=== PATIENT | male | born 1950 | race Caucasian/White ===

== ENCOUNTER 2017-10-07 22:47 | Inpatient (IN) | payer MEDICARE ==
[2017-10-07] MEDS ORDERED: Ondansetron HCl/PF 4 MG/2 ML Vial IVP PRN (23:57)
[2017-10-07] MEDS ORDERED: Ondansetron ODT 4 MG TAB PO PRN (23:57)
[2017-10-07] MEDS ORDERED: Milk Of Magnesia 30 ML UDCUP PO PRN (23:57)
[2017-10-07] MEDS ORDERED: Nitroglycerin 0.4 MG TAB (25 Tab Bottle) SL PRN (23:58)
[2017-10-08] MEDS ORDERED: Nitroglycerin 2% Ointment 1 INCH/1 GM Packet ONE
--- NOTE | 2017-10-08 00:55 | HP ---
PRIMARY CARE PHYSICIAN: Gm Aguilar MD PRESENTING COMPLAINT: Chest pain. HISTORY OF PRESENT ILLNESS: Mr. Mike Grove is a 66-year-old male with a past medical history of hypertension and hyperlipidemia, who reports chest pain started on Friday. He had intermittent episodes of substernal 5-7/10 chest pain lasting 4-5 minutes, aggravated by activity occasionally and sometimes occurring at rest, and are relieved by resting. The pain did not radiate. He denies any extremity weakness or jaw numbness. He has no diaphoresis, but has some shortness of breath associated with the chest pain. There is no nausea, vomiting, diarrhea, fever, or chills. He has no palpitations, PND, orthopnea, or lower extremity edema. He states he had a stress test done about 20 years ago, which was negative. PAST MEDICAL HISTORY: Hypertension, hyperlipidemia. PAST SURGICAL HISTORY: Reviewed and noncontributory. SOCIAL HISTORY: Denies smoking cigarette, drinking alcohol, or using illicit drugs. FAMILY HISTORY: No family history of CAD, sudden deaths, or heart failure. ALLERGIES: None. HOME MEDICATIONS: Ibuprofen 200 mg every 4 hours as needed for pain, lisinopril/ hydrochlorothiazide 10 mg/12.5 mg tablet daily, prednisone 10 mg as directed for "poison dat." REVIEW OF SYSTEMS: General: Negative. HEENT: Negative. Respiratory: Positive for shortness of breath. Cardiovascular: Positive for chest pain. For details, see HPI. Abdomen: Negative. Musculoskeletal: Negative. Skin: Negative. Allergy/immunology: Negative. Hematology: Negative. Neurologic: Negative. Psychiatric: Negative. LABORATORY DATA: Significant labs include troponin, which was 1.32 on arrival with CK-MB of 12.9. EKG showed no ST-segment elevations. Chest x-ray showed no acute findings. ASSESSMENT AND PLAN: 1. Gaa-GY-wbrolse elevation myocardial infarction: The patient with a history of hypertension and hyperlipidemia presenting with chest pain and elevated cardiac enzymes. Cardiology has been consulted and the patient will be started on subcutaneous Lovenox 1 mg/kg q.12 hours. He will also be monitored on telemetry. For his chest pain, he will be placed on sublingual nitroglycerin and IV morphine p.r.n. Also nitro paste will be placed to control blood pressure. He will be continued on aspirin. Lipid profile will be obtained and he will be placed on atorvastatin 40 mg at bedtime. 2. Hyperlipidemia. He will be placed on atorvastatin. We will obtain lipid profile. 3. Hypertension. Blood pressure is relatively well controlled. The patient is not on any beta donnell at home. We will monitor blood pressure and before discharge, he will need to be started on beta donnell. 4. Cardiology consulted for possible left heart catheterization. CODE STATUS: FULL CODE. MTDD
[2017-10-08 01:01] LABS: Troponin I 1.792 ng/mL (< 0.028)
[2017-10-08 03:12] VITALS: BMI 28.8
[2017-10-08 03:32] LABS: #Basophils 0.1 thou/uL (0.0-0.2); #Eosinphils 0.3 thou/uL (0.0-0.7); #Lymphocytes 3.2 thou/uL (1.20-3.40); #Monocytes 0.7 thou/uL (0.11-0.59); #Neutrophils 4.1 thou/uL (1.40-6.50); %Basophils 0.9 % (0.0-1.0); %Eosinophils 3.2 % (0.0-10.0); %Lymphocytes 38.4 % (21.0-51.0); %Monocytes 8.7 % (0.0-10.0); %Neutrophils 48.9 % (42.0-75.0); Hemoglobin 14.2 g/dL (14.0-18.0); Mean Corpuscular HGB CONC 34.4 g/dL (32.0-36.0); Mean Corpuscular Volume 87.2 fl (80.0-94.0); Mean Platelet Volume 6.4 fL (7.4-10.4); Platelet Count 202 thou/uL (130-400); Red Blood Cell (RBC) Count 4.72 mill/uL (4.70-6.10); White Blood Cell (WBC) Count 8.4 thou/uL (4.8-10.8)
[2017-10-08 03:59] LABS: Troponin I 2.126 ng/mL (< 0.028)
[2017-10-08 04:03] LABS: AST (SGOT) 26 U/L (5-34); Albumin 3.8 g/dL (3.4-4.8); Anion Gap 12 mmol/L (10-20); Bilirubin, Total 0.3 mg/dL (0.2-1.2); Calc. Creatinine Clearance 82 mL/min (70-130); Calcium 9.2 mg/dL (7.8-10.44); Carbon Dioxide 26 mmol/L (23-31); Cardiac Risk 7.1 (Less than 4.5); Chloride 104 mmol/L (98-107); Cholesterol 205 mg/dl (< 200 Desired); Estimated GFR-MDRD 68; HDL Cholesterol 29 mg/dL (>60 Neg Risk); LDL Cholesterol, Calculated 130 mg/dL; Potassium 4.1 mmol/L (3.5-5.1); Protein, Total 6.8 g/dL (5.8-8.1); Sodium 138 mmol/L (136-145); Triglycerides 232 mg/dL (Less than 150)
[2017-10-08 04:07] LABS: Glucose 103 mg/dL (80-115)
[2017-10-08 04:10] LABS: Alkaline Phosphatase 91 U/L (40-150)
[2017-10-08 04:12] LABS: BUN (Urea Nitrogen) 11 mg/dL (8.4-25.7)
[2017-10-08 04:13] LABS: ALT (SGPT) 19 U/L (8-55)
[2017-10-08] MEDS ORDERED: Loratadine 10 MG TAB PO PRN (07:00)
[2017-10-08] MEDS ORDERED: hydrALAZINE 20 MG/ML VIAL SLOW IVP PRN (07:00)
[2017-10-08] MEDS ORDERED: Artificial Tears 18 DROP/0.9 ML EA EYE PRN (07:00)
[2017-10-08] MEDS ORDERED: Chloraseptic Spray 180 ml Bottle PO PRN (07:00)
[2017-10-08] MEDS ORDERED: Loperamide HCl 2 MG CAP PO PRN (07:00)
[2017-10-08] MEDS ORDERED: Eucerin (Mineral Oil/Petrolatum,White) 30 gm Jar TOP PRN (07:00)
[2017-10-08] MEDS ORDERED: Temazepam 15 MG CAP PO PRN (07:00)
[2017-10-08] MEDS ORDERED: Mag-Al 1200 mg/1200 mg/30 ML UDCUP PO PRN (07:00)
[2017-10-08] MEDS ORDERED: Sodium Chloride 0.65% Nasal 44 ML BOT EA NARE PRN (07:00)
[2017-10-08] MEDS ORDERED: Diabetic Tussin 200 MG/10 ML UDCUP PO PRN (07:00)
[2017-10-08 07:21] LABS: Critical Call Chem Troponin I RESULT DECREASING; Troponin I 1.966 ng/mL (< 0.028)
[2017-10-08] MEDS: Famotidine 20 MG TAB PO SCH ×2 (08:40→22:41)
[2017-10-08] MEDS: Docusate 100 MG CAP PO SCH ×2 (08:40→22:41)
[2017-10-08] MEDS: Aspirin 325 MG TAB PO SCH (08:40)
[2017-10-08] MEDS ORDERED: Enoxaparin Sodium 100 MG/ML SYRINGE SC SCH (09:00)
--- NOTE | 2017-10-08 09:06 | PDOC.PN ---
- Subjective Encounter Start Date: 10/08/17 Encounter Start Time: 07:10 -: old records requested/rev pt has mild chest discomfort, no dyspnea, no palpitation - Objective MAR Reviewed: Yes Vital Signs & Weight: Vital Signs (12 hours) Temp Pulse Resp BP Pulse Ox 10/08/17 08:00 97.9 F 60 16 111/70 94 L 10/08/17 07:43 97 10/08/17 03:54 97.5 F L 51 L 14 109/72 95 10/08/17 01:29 97.5 F L 51 L 14 119/73 97 Weight Weight 190 lb Result Diagrams: 10/08/17 03:25 10/08/17 03:25 EKG Reviewed by me: Yes (nsr) Phys Exam - Physical Examination Constitutional: NAD HEENT: PERRLA, moist MMs, sclera anicteric Neck: no JVD, supple Respiratory: no wheezing, no rales, no rhonchi Cardiovascular: RRR, no significant murmur, no rub Gastrointestinal: soft, non-tender, no distention, positive bowel sounds Musculoskeletal: no edema, pulses present Neurological: non-focal, normal sensation, moves all 4 limbs Lymphatic: no nodes Psychiatric: normal affect, A&O x 3 Skin: no rash, normal turgor Dx/Plan (1) NSTEMI (non-ST elevated myocardial infarction) Code(s): I21.4 - NON-ST ELEVATION (NSTEMI) MYOCARDIAL INFARCTION Status: Acute (2) Sinus bradycardia Code(s): R00.1 - BRADYCARDIA, UNSPECIFIED Status: Acute (3) Dyslipidemia Code(s): E78.5 - HYPERLIPIDEMIA, UNSPECIFIED Status: Chronic (4) Hypertension Code(s): I10 - ESSENTIAL (PRIMARY) HYPERTENSION Status: Chronic - Plan cont current plan of care, plan discussed w/ family * continue aspirin, lipitor, lovenox * pt is not on beta donnell due to bradycardia * pt is not on ACEI due to relative low BP * echo * cardiology consulted * will need cardiac cath * discussed with . * medication reviewed as below * symptomatic treatment Review of Systems - Review of Systems Constitutional: negative: fever, chills, sweats, weakness, malaise, other Eyes: negative: Pain, Vision Change, Conjunctivae Inflammation, Eyelid Inflammation, Redness, Other ENT: negative: Ear Pain, Ear Discharge, Nose Pain, Nose Discharge, Nose Congestion, Mouth Pain, Mouth Swelling, Throat Pain, Throat Swelling, Other Respiratory: negative: Cough, Dry, Shortness of Breath, Hemoptysis, SOB with Excertion, Pleuritic Pain, Sputum, Wheezing Cardiovascular: negative: chest pain, palpitations, orthopnea, paroxysmal nocturnal dyspnea, edema, light headedness, other Gastrointestinal: negative: Nausea, Vomiting, Abdominal Pain, Diarrhea, Constipation, Melena, Hematochezia, Other Genitourinary: negative: Dysuria, Frequency, Incontinence, Hematuria, Retention , Other Musculoskeletal: negative: Neck Pain, Shoulder Pain, Arm Pain, Back Pain, Hand Pain, Leg Pain, Foot Pain, Other Skin: negative: Rash, Lesions, Lonny, Bruising, Other - Medications/Allergies Allergies/Adverse Reactions: Allergies Allergy/AdvReac Type Severity Reaction Status Date / Time acetaminophen [From Tylenol] Allergy "my son Verified 10/08/17 03:33 of tylenol poisoning--dont want to take any" Medications: Current Medications Al Hydroxide/Mg Hydroxide (Maalox) 15 ml PO Q4H PRN PRN Reason: Heartburn or Indigestion Artificial Tears (Tears Naturale) 0 drop EA EYE PRN PRN PRN Reason: Dry Eyes Aspirin (Aspirin) 325 mg PO DAILY [facility] Last Admin: 10/08/17 08:40 Dose: Not Given Atorvastatin Calcium (Lipitor) 40 mg PO [facility] Docusate Sodium (Colace) 100 mg PO BID [facility] Last Admin: 10/08/17 08:40 Dose: Not Given Enoxaparin Sodium (Lovenox) 90 mg SC 0900,2100 [facility] Last Admin: 10/08/17 08:40 Dose: Not Given Famotidine (Pepcid) 20 mg PO BID [facility] Last Admin: 10/08/17 08:40 Dose: Not Given Guaifenesin (Robitussin Sf) 200 mg PO Q4H PRN PRN Reason: Cough Hydralazine HCl (Apresoline) 10 mg SLOW IVP Q4H PRN PRN Reason: Systolic BP > 180 Influenza Virus Vaccine (Fluzone High-Dose Syr) 0.5 ml IM .ONCE ONE Stop: 10/09/17 09:01 Last Admin: 10/08/17 04:33 Dose: Not Given Lactulose (Lactulose) 20 gm PO DAILYPRN PRN PRN Reason: Constipation Loperamide HCl (Imodium) 2 mg PO PRN PRN PRN Reason: Diarrhea/Loose Stools Loratadine (Claritin) 10 mg PO DAILYPRN PRN PRN Reason: Sinus Symptoms Magnesium Hydroxide (Milk Of Magnesium) 30 ml PO DAILYPRN PRN PRN Reason: Constipation Mineral Oil/White Petrolatum (Eucerin Cream) 0 gm TOP BIDPRN PRN PRN Reason: Dry Skin Morphine Sulfate (Morphine) 2 mg SLOW IVP Q4H PRN PRN Reason: Pain Nitroglycerin (Nitrostat) 0.4 mg SL Q5MIN PRN PRN Reason: Chest Pain Ondansetron HCl (Zofran Odt) 4 mg PO Q6H PRN PRN Reason: Nausea/Vomiting Ondansetron HCl (Zofran) 4 mg IVP Q6H PRN PRN Reason: Nausea/Vomiting Phenol (Chloraseptic [place] 180 Ml Bot) 0 ml PO PRN PRN PRN Reason: Sore Throat Sodium Chloride ([place] Nasal [place] 0.65%) 0 ml EA NARE QIDPRN PRN PRN Reason: Nasal Congestion Sodium Chloride (Flush - Normal Saline) 10 ml IVF Q12HR LIZZETTE Sodium Chloride (Flush - Normal Saline) 10 ml IVF PRN PRN PRN Reason: Saline Flush Temazepam (Restoril) 15 mg PO HSPRN PRN PRN Reason: Insomnia
[2017-10-08] MEDS ORDERED: Morphine 5 MG/ML SYRINGE SLOW IVP PRN (16:30)
[2017-10-08] MEDS ORDERED: Communication Order-Pharmacy FS SCH (16:30)
[2017-10-08] MEDS: Sodium Chloride 0.9% 1,000 ML IV SCH (17:14)
[2017-10-08] MEDS: Atorvastatin Calcium 40 MG TAB PO SCH (22:41)
--- NOTE | 2017-10-09 01:50 | CON ---
DATE OF CONSULTATION: 10/08/2017 HISTORY OF PRESENT ILLNESS: Perfecto Mckeon is a 66-year-old white male who denies any previous episodes of chest discomfort until Friday10/05/2017. He first noticed this while he was driving, had approximately 10 minutes of chest burning that would radiate into both arms. He had mild shortness of breath associated with this, but no nausea, vomiting or diaphoresis. The first episode he states was the worst and seemed to last the longest time - 10 minutes. After that, he had 2-3 minutes of the same type of discomfort associated with exertion and relieved with rest. He went to work on 10/06/2017 and had an episode with lifting at work. Ultimately, he decided to come to the emergency room yesterday for further evaluation. He was found to have positive cardiac enzymes and was admitted. PAST MEDICAL HISTORY: Remarkable for hypertension. He was recently told that he has hypercholesterolemia, but has never been on any medications. He denies any history of diabetes. OPERATIONS: Left knee surgery, ORIF right ankle, surgical repair of trauma to the right ring finger. MEDICATIONS: Lisinopril/hydrochlorothiazide 10/12.5 daily (he is somewhat uncertain of the dose) and ibuprofen. He also has been taking prednisone 10 mg per Poison dat. ALLERGIES: None (however, the patient states that he had a son of liver failure from Tylenol and wishes to not take Tylenol). SOCIAL HISTORY: He smoked 1 pack per day, but stopped 35 years ago. He also stopped drinking at that time. 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 FAMILY HISTORY: Negative for coronary artery disease, myocardial infarction, CABG or sudden . REVIEW OF SYSTEMS: Twelve-point review of systems unremarkable. PHYSICAL EXAMINATION: VITAL SIGNS: Blood pressure 114/67, pulse of 55. HEENT: PERRL with bilateral ear creases. NECK: Supple. CHEST: Clear. CARDIAC: S1, S2 normal, without any S3, S4 or murmurs. Carotid upstrokes normal, without bruits. ABDOMEN: Normal bowel sounds, without tenderness, organomegaly. EXTREMITIES: Revealed no clubbing, cyanosis or edema. NEUROLOGIC: Grossly intact. SKIN: Warm and dry. LABORATORY DATA: EKG reveals sinus bradycardia with probable inferior infarction with Q-wave in II, III and F with inverted T waves. Echocardiogram revealed mild left ventricular dysfunction with overall ejection fraction of 45% -50%, evidence for diastolic dysfunction, mild mitral regurgitation, aortic valvular sclerosis, mild to moderate aortic insufficiency, mild tricuspid regurgitation and mild pulmonic regurgitation. Hemoglobin 14.2, hematocrit 41.1 , white count 8400, platelets 202,000. Sodium 138, potassium 4.1, chloride 26, BUN 11, creatinine 1.08, glucose 134 on admission, however, was 103 this morning fasting. CK-MB 12.9. The peak troponin I is 2.126. Cholesterol 205, triglycerides 232, HDL 29, LDL 130. Lipase is normal at 52. IMPRESSION: 1. Eup-EB-xbxrulh elevation myocardial infarction, probably inferiorly. 2. Hypertension. 3. Hypercholesterolemia, untreated. 4. Distant smoker. PLAN: The situation was discussed with the patient and his . It was recommended he undergo cardiac catheterization. Risks of this were discussed including , myocardial infarction, dye reaction, vascular injury, CVA, transfusion, limb loss, renal loss, vascular injury, etc. Also, risks of stent placement were discussed including , myocardial infarction, emergent CABG, restenosis, stent thrombosis, vessel perforation, etc. We discussed bare metal stent versus drug-eluting stent. He does not have any upcoming surgeries, and has never had GI bleeding in the past and has never had a stroke. Therefore, it was recommended that a drug-eluting stent be placed if needed. MACARIO
[2017-10-09] MEDS: Sodium Chloride 0.9% 1,000 ML IV SCH (05:55)
[2017-10-09] MEDS ORDERED: Heparin 10,000 UNITS/1 ML VIAL ONE (06:29)
[2017-10-09] MEDS ORDERED: Lidocaine 1% (PF) 30 ML VIAL ONE (06:32)
[2017-10-09] MEDS ORDERED: Midazolam HCl 2 mg/2 ml Vial ONE (07:09)
[2017-10-09] MEDS ORDERED: Fentanyl 250 MCG/5 ML VIAL ONE (07:09)
[2017-10-09] MEDS ORDERED: Heparin 25,000 units/D5W 500 ML ONE (07:32)
[2017-10-09] MEDS ORDERED: traMADol HCl 50 MG TAB PO PRN (07:58)
[2017-10-09] MEDS ORDERED: Nitroglycerin 0.4 MG TAB (25 Tab Bottle) SL PRN (07:58)
[2017-10-09] MEDS ORDERED: Sodium Chloride 0.9% 1,000 ML IV SCH (08:00)
[2017-10-09] MEDS ORDERED: Heparin 10,000 UNITS/ 10 ML VIAL SLOW IVP SCH (08:00)
[2017-10-09] MEDS ORDERED: Heparin 25,000 units/D5W 500 ML IVPB SCH (08:00)
[2017-10-09] MEDS ORDERED: Sodium Chloride 0.9% 200 ML IV SCH (08:00)
--- NOTE | 2017-10-09 08:55 | PDOC.PN ---
- Subjective Encounter Start Date: 10/09/17 Encounter Start Time: 07:00 Patient seen and examined. No new complaints. No overnight events - Objective MAR Reviewed: Yes Vital Signs & Weight: Vital Signs (12 hours) Temp Pulse Resp BP BP Pulse Ox 10/09/17 05:25 98 10/09/17 04:00 98.4 F 51 L 16 110/65 98 10/09/17 00:00 98.5 F 62 16 120/61 97 Weight Weight 190 lb I&O: 10/08/17 10/09/17 10/10/17 06:59 06:59 06:59 Intake Total 200 Balance 200 Result Diagrams: 10/08/17 03:25 10/08/17 03:25 Radiology Reviewed by me: Yes (echo-ef 40-45%) EKG Reviewed by me: Yes (nsr) Phys Exam - Physical Examination Constitutional: NAD HEENT: PERRLA, moist MMs, sclera anicteric Neck: no JVD, supple Respiratory: no wheezing, no rales, no rhonchi Cardiovascular: RRR, no significant murmur, no rub Gastrointestinal: soft, non-tender, no distention, positive bowel sounds Musculoskeletal: no edema, pulses present Neurological: non-focal, normal sensation, moves all 4 limbs Psychiatric: normal affect, A&O x 3 Skin: no rash, normal turgor Dx/Plan (1) NSTEMI (non-ST elevated myocardial infarction) Code(s): I21.4 - NON-ST ELEVATION (NSTEMI) MYOCARDIAL INFARCTION Status: Acute (2) Sinus bradycardia Code(s): R00.1 - BRADYCARDIA, UNSPECIFIED Status: Acute (3) Dyslipidemia Code(s): E78.5 - HYPERLIPIDEMIA, UNSPECIFIED Status: Chronic (4) Hypertension Code(s): I10 - ESSENTIAL (PRIMARY) HYPERTENSION Status: Chronic (5) Combined systolic and diastolic cardiac dysfunction Code(s): I51.89 - OTHER ILL-DEFINED HEART DISEASES Status: Acute - Plan cont current plan of care * pt was taken for cardiac cath, after that pt is going for cabg * no cath report yet * medication reviewed as below * symptomatic treatment * after cabg, continue post cabg protocol treatment as per CT surgeon. Review of Systems - Review of Systems Constitutional: negative: fever, chills, sweats, weakness, malaise, other Eyes: negative: Pain, Vision Change, Conjunctivae Inflammation, Eyelid Inflammation, Redness, Other ENT: negative: Ear Pain, Ear Discharge, Nose Pain, Nose Discharge, Nose Congestion, Mouth Pain, Mouth Swelling, Throat Pain, Throat Swelling, Other Respiratory: negative: Cough, Dry, Shortness of Breath, Hemoptysis, SOB with Excertion, Pleuritic Pain, Sputum, Wheezing Cardiovascular: negative: chest pain, palpitations, orthopnea, paroxysmal nocturnal dyspnea, edema, light headedness, other Gastrointestinal: negative: Nausea, Vomiting, Abdominal Pain, Diarrhea, Constipation, Melena, Hematochezia, Other Genitourinary: negative: Dysuria, Frequency, Incontinence, Hematuria, Retention , Other Musculoskeletal: negative: Neck Pain, Shoulder Pain, Arm Pain, Back Pain, Hand Pain, Leg Pain, Foot Pain, Other Skin: negative: Rash, Lesions, Lonny, Bruising, Other - Medications/Allergies Allergies/Adverse Reactions: Allergies Allergy/AdvReac Type Severity Reaction Status Date / Time acetaminophen [From Tylenol] Allergy "my son Verified 10/08/17 03:33 of tylenol poisoning--dont want to take any" Medications: Current Medications Al Hydroxide/Mg Hydroxide (Maalox) 15 ml PO Q4H PRN PRN Reason: Heartburn or Indigestion Artificial Tears (Tears Naturale) 0 drop EA EYE PRN PRN PRN Reason: Dry Eyes Aspirin (Aspirin) 325 mg PO DAILY [facility] Last Admin: 10/08/17 08:40 Dose: Not Given Atorvastatin Calcium (Lipitor) 40 mg PO HS [facility] Last Admin: 10/08/17 22:41 Dose: 40 mg Docusate Sodium (Colace) 100 mg PO BID [facility] Last Admin: 10/08/17 22:41 Dose: 100 mg Famotidine (Pepcid) 20 mg PO BID [facility] Last Admin: 10/08/17 22:41 Dose: 20 mg Guaifenesin (Robitussin Sf) 200 mg PO Q4H PRN PRN Reason: Cough Heparin Sodium (Porcine) (Heparin 1,000 Units/Ml (10 Ml)) 0 units SLOW IVP ASDIR [facility] PRN Reason: Protocol Hydralazine HCl (Apresoline) 10 mg SLOW IVP Q4H PRN PRN Reason: Systolic BP > 180 Heparin Sodium/Dextrose (Heparin 25,000 Units/D5w 500 Ml) 500 mls @ 0 mls/hr IVPB INF LIZZETTE; Per Protocol PRN Reason: Protocol Sodium Chloride (Normal Saline 0.9%) 200 mls @ 0 mls/hr IV ONE LIZZETTE PRN Reason: As Directed Stop: 10/09/17 10:00 Sodium Chloride (Normal Saline 0.9%) 1,000 mls @ 125 mls/hr IV .Q8H LIZZETTE Stop: 10/09/17 14:00 Influenza Virus Vaccine (Fluzone High-Dose Syr) 0.5 ml IM .ONCE ONE Stop: 10/09/17 09:01 Last Admin: 10/08/17 04:33 Dose: Not Given Lactulose (Lactulose) 20 gm PO DAILYPRN PRN PRN Reason: Constipation Loperamide HCl (Imodium) 2 mg PO PRN PRN PRN Reason: Diarrhea/Loose Stools Loratadine (Claritin) 10 mg PO DAILYPRN PRN PRN Reason: Sinus Symptoms Magnesium Hydroxide (Milk Of Magnesium) 30 ml PO DAILYPRN PRN PRN Reason: Constipation Mineral Oil/White Petrolatum (Eucerin Cream) 0 gm TOP BIDPRN PRN PRN Reason: Dry Skin Morphine Sulfate (Morphine) 2 mg SLOW IVP Q4H PRN PRN Reason: Pain Last Admin: 10/08/17 16:30 Dose: 2 mg Nitroglycerin (Nitrostat) 0.4 mg SL Q5MIN PRN PRN Reason: Chest Pain Nitroglycerin (Nitrostat) 0.4 mg SL Q5MIN PRN PRN Reason: Chest Pain Ondansetron HCl (Zofran Odt) 4 mg PO Q6H PRN PRN Reason: Nausea/Vomiting Ondansetron HCl (Zofran) 4 mg IVP Q6H PRN PRN Reason: Nausea/Vomiting Phenol (Chloraseptic [place] 180 Ml Bot) 0 ml PO PRN PRN PRN Reason: Sore Throat Sodium Chloride ([place] Nasal [place] 0.65%) 0 ml EA NARE QIDPRN PRN PRN Reason: Nasal Congestion Sodium Chloride (Flush - Normal Saline) 10 ml IVF Q12HR [facility]TE Last Admin: 10/08/17 22:41 Dose: 10 ml Sodium Chloride (Flush - Normal Saline) 10 ml IVF PRN PRN PRN Reason: Saline Flush Temazepam (Restoril) 15 mg PO HSPRN PRN PRN Reason: Insomnia Tramadol HCl (Ultram) 50 mg PO Q6H PRN PRN Reason: Moderate Pain (4-6)
[2017-10-09] MEDS ORDERED: FLU VACC TS2017-18 (>65YR) 0.5 ML SYRINGE IM ONE (09:00)
[2017-10-09 10:33] LABS: Hemoglobin 13.6 g/dL (14.0-18.0); Platelet Count 180 thou/uL (130-400)
[2017-10-09] MEDS: Aspirin 325 MG TAB PO SCH (10:52)
[2017-10-09] MEDS: Famotidine 20 MG TAB PO SCH ×2 (10:52→20:31)
[2017-10-09] MEDS: Docusate 100 MG CAP PO SCH ×2 (10:52→20:31)
[2017-10-09 11:15] LABS: PTT 217.2 SEC (22.9-36.1)
[2017-10-09] MEDS ORDERED: Temazepam 15 MG CAP PO PRN (13:32)
[2017-10-09] MEDS ORDERED: Communication Order-Pharmacy FS SCH (13:32)
[2017-10-09] MEDS ORDERED: Iopamidol 370 76% 50 ML VIAL FS ONE (13:33)
[2017-10-09] MEDS ORDERED: Iopamidol 370 76% 100 ML VIAL ONE (13:33)
[2017-10-09 13:51] LABS: INR-International Normal Ratio 1.1; Prothrombin Time 14.2 SEC (12.0-14.7)
[2017-10-09 13:52] LABS: PTT 68.8 SEC (22.9-36.1)
--- NOTE | 2017-10-09 14:51 | CON ---
DATE OF CONSULTATION: 10/09/2017 REQUESTING PHYSICIAN: Dr. Abbe Beebe. PRIMARY CARE PHYSICIAN: Dr. Gm Aguilar. CHIEF COMPLAINT: Chest pain. HISTORY OF PRESENT ILLNESS: The patient is a 66-year-old man with hypertension who is normally quite active. This past Friday, he had an episode of burning chest pain going into both arms while he was driving, it lasted about 10 minutes and was associated with a bit of shortness of breath. 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 His initial sets of troponins were positive and they had a slight rise and fall over the next few hours. He did not have any EKG changes that were obvious ass ociated with them. In retrospect while he has not had any antecedent chest pain, he has noticed that over the last several months that he does not seem to have quite as much energy. Typically, he is a ble to work hard for 5 or 6 hours at a time and now he gets fairly tired after just 1 or 2 hours of w ork. PAST MEDICAL HISTORY: Significant for hypertension and apparently recently diagnosed with hyperchole sterolemia. PAST SURGICAL HISTORY: He has had previous orthopedic procedures to his left knee, right ankle and r ight ring finger. MEDICATIONS: His only regular home medication is lisinopril 10/hydrochlorothiazide 12.5 one a day an d p.r.n. ibuprofen; apparently recently has been given a short course of prednisone for POISON BALDEMAR. The patient denies any medical allergies, but has a distinct preference to not take Tylenol because o f liver failure, in the immediate family from Tylenol. SOCIAL HISTORY: The patient smoked about a pack of cigarettes a day many years ago, having quit abou t 35 years ago. He does not drink alcohol. FAMILY HISTORY: Negative for any known coronary, cerebrovascular or peripheral vascular disease. REVIEW OF SYSTEMS: Negative for any antecedent shortness of breath, but is positive for the fatigabi lity. Denies any diaphoresis or nausea, any orthopnea or PND. Denies any dependent edema. Denies a ny claudication symptoms, no eye speech, facial or extremity symptoms to suggest TIAs. PHYSICAL EXAMINATION: GENERAL: He is a fit-appearing man in no distress. VITAL SIGNS: Height 5 foot 8, weight is 190 pounds. Heart rate on presentation was 49 and blood pre ssure 119/73 and throughout his hospital stay, his heart rates have ranged from about 50 to about 60 with most of his heart rates being in the 50s. His latest was 52 and blood pressure 115/50. Room ai r O2 sats are 94%. His temperature is 98.4. HEENT: He has no xanthelasma. NECK: No JVD, no carotid bruits. LUNGS: His chest is clear to auscultation. CARDIOVASCULAR: He has a regular rate and rhythm without murmur or gallop. ABDOMEN: Soft, nontender, without organomegaly, masses or bruits. EXTREMITIES: Radial pulses are palpable easier on the right than on the left (he is left hand domina nt). On Adi's testing, there is sluggish refill bilaterally with only ulnar flow and the hands pin ked up fairly quickly with release of the radial artery. He has easily palpable posterior tibial pul ses and right dorsalis pedis pulse. He has an easily palpable left femoral pulse. He has a femoral sheath in place on the right side, was not able to appreciate the left dorsalis pedis pulse. Both po pliteal pulses are easily palpable. He has no obvious varicosities. No clubbing, cyanosis or edema. NEUROLOGIC: Grossly nonfocal. IMAGING: I do not find a chest x-ray on him. LABORATORY DATA: Shows white count 8.4, hemoglobin 14.2, hematocrit 41.1, platelets 202,000. Sodium 138, potassium 4.1, chloride 104, CO2 of 26, glucose 103, BUN 11, creatinine 1.08. Normal LFTs. Ca lcium 9.2, protein 6.8, albumin 3.8. Fasting triglycerides were 232 and cholesterol 205 with HDL 29 and calculated LDL 130. His initial troponin at about midnight the night of the was 1.792 and a t about 03:30 on the morning of the , it was 2.126 and at about 06:45, it was 1.966. His EKG pipe wed inferior Q-waves. His cardiac catheterization shows right dominant system with a normal left luz marina n and some trivial luminal irregularity in the proximal circumflex with a fairly large obtuse margina l heading up towards the apex. He has multiple 70-90% lesions in his LAD starting in the proximal se gment and extending to the second sizable septal mailing section clerk with a diseased, very high first diagonal . It is of modest size and isolating a small second diagonal. His right coronary has a very large p osterolateral branch and relatively small PDA. He has a subtotal lesion in the proximal right shukla ry with what looks like thrombus a little bit distal to that compromising the lumen as well as notice ably slow flow through the right coronary system. LVEF is around 40% with inferior hypokinesis. LVE DP was 9. IMPRESSION AND RECOMMENDATION: Severe 2-vessel coronary artery disease in the setting of recent myoc ardial infarction and remote infarction or at least remote enough to evolved Q-waves. He is currentl y on aspirin and Lipitor, even though he has previously been on lisinopril, hydrochlorothiazide. Rig ht now, his blood pressures and heart rates are low enough to make the use of beta blockers or JADE in hibitors somewhat problematic, so I will continue to hold that. I think he should be at fairly low r isk for surgical revascularization and should get a far superior, terminologist result with coronary bypa ss surgery.
--- NOTE | 2017-10-09 15:34 | RAD ---
FRONTAL RADIOGRAPH CHEST 10/09/17 COMPARISON: 10/07/17 HISTORY: Evaluate chest prior to open heart surgery. FINDINGS: There is no pneumothorax, pleural fluid, focal consolidation, or alveolar edema. Heart and mediastina l contours are unremarkable. IMPRESSION: No acute findings. POS: [facility]
[2017-10-09] MEDS: Atorvastatin Calcium 40 MG TAB PO SCH (20:31)
[2017-10-10] MEDS ORDERED: Albumin 5% 0 ML ONE (06:31)
[2017-10-10] MEDS ORDERED: Heparin 10,000 UNITS/1 ML VIAL 30,000 UNITS in Sodium Chloride 0.9% 1,000 ML FS SCH (06:45)
[2017-10-10] MEDS ORDERED: Midazolam HCl 5 mg/5 ml Vial ONE (07:03)
[2017-10-10] MEDS ORDERED: Fentanyl 250 MCG/5 ML VIAL ONE ×2 (07:03)
[2017-10-10] MEDS ORDERED: CEFAZOLIN/Water 2 GM/20 ML SYRINGE ONE (07:38)
[2017-10-10] MEDS: CEFAZOLIN 1 GM, Syringe 2.5 ML in Sterile Water 7.5 ML SLOW IVP SCH ×2 (07:49→07:51)
[2017-10-10] MEDS: Aspirin 325 MG TAB PO SCH (07:50)
[2017-10-10] MEDS: Docusate 100 MG CAP PO SCH ×2 (07:50→21:24)
[2017-10-10] MEDS: Famotidine 20 MG TAB PO SCH (07:50)
[2017-10-10] MEDS ORDERED: Nitroglycerin 50 MG/250 ML BOT 250 ML IVPB PRN (08:14)
[2017-10-10] MEDS ORDERED: Bisacodyl 10 MG SUPP PR PRN (08:14)
[2017-10-10] MEDS ORDERED: Mag-Al 1200 mg/1200 mg/30 ML UDCUP PO PRN (08:14)
[2017-10-10] MEDS ORDERED: Bisacodyl 5 MG TAB PO PRN (08:14)
[2017-10-10] MEDS ORDERED: Ondansetron HCl/PF 4 MG/2 ML Vial IVP PRN (08:14)
[2017-10-10] MEDS ORDERED: Fentanyl 100 MCG/2 ML VIAL SLOW IVP PRN (08:14)
[2017-10-10] MEDS ORDERED: Guaifenesin DM 100-10/5 ML UDCUP PO PRN (08:14)
[2017-10-10] MEDS ORDERED: HYDROcodone/Acetaminophen 5/325 mg Tablet PO PRN (08:14)
[2017-10-10] MEDS ORDERED: Potassium Chloride 20 MEQ/100 ML PREMIX BAG IVPB PRN (08:14)
[2017-10-10] MEDS ORDERED: Post-Op Insulin Drip Protocol IVPB ONE (08:14)
[2017-10-10] MEDS ORDERED: Norepinephrine 8 MG/0.9% NS 250 ML IVPB PRN (08:14)
[2017-10-10] MEDS ORDERED: hydrALAZINE 20 MG/ML VIAL SLOW IVP PRN (08:14)
[2017-10-10] MEDS ORDERED: Acetaminophen 325 MG TAB PO PRN (08:14)
[2017-10-10] MEDS ORDERED: Hetastarch 6% 500 ML 500 ML IVPB PRN (08:14)
[2017-10-10] MEDS ORDERED: Dextrose 50% Abboject 50 ML SYRINGE SLOW IVP PRN (08:26)
[2017-10-10] MEDS ORDERED: Dextrose 5% in Water 1,000 ML IV PRN (08:26)
[2017-10-10] MEDS ORDERED: Morphine 10 MG/ML VIAL SLOW IVP PRN (08:40)
[2017-10-10] MEDS ORDERED: Aspirin 325 MG TAB PO SCH (09:00)
[2017-10-10] MEDS ORDERED: Vecuronium 10 MG VIAL ONE ×2 (10:51→18:11)
--- NOTE | 2017-10-10 11:57 | PDOC.PN ---
- Subjective Encounter Start Date: 10/10/17 Encounter Start Time: 06:45 Patient seen and examined. No new complaints. No overnight events - Objective MAR Reviewed: Yes Vital Signs & Weight: Vital Signs (12 hours) Temp 10/10/17 06:00 98.7 F Weight Admit Weight 196 lb 3.382 oz Weight 190 lb Most Recent Monitor Data Heart Rate from ECG 56 NIBP 116/72 NIBP BP-Mean 81 Respiration from ECG 20 SpO2 95 I&O: 10/09/17 10/10/17 10/11/17 06:59 06:59 06:59 Intake Total 200 1695 0 Output Total 1800 200 Balance 200 -105 -200 Result Diagrams: 10/09/17 10:21 10/08/17 03:25 Additional Labs: Accuchecks 10/10/17 10/10/17 10/10/17 11:48 10:20 09:57 POC Glucose 143 H 155 H 127 H 10/10/17 10/10/17 09:19 09:13 POC Glucose 116 H 111 H EKG Reviewed by me: Yes Phys Exam - Physical Examination Constitutional: NAD HEENT: PERRLA, moist MMs, sclera anicteric Neck: no JVD, supple Respiratory: no wheezing, no rales, no rhonchi Cardiovascular: RRR, no significant murmur, no rub Gastrointestinal: soft, non-tender, no distention, positive bowel sounds Musculoskeletal: no edema, pulses present Neurological: non-focal, normal sensation, moves all 4 limbs Psychiatric: normal affect, A&O x 3 Skin: no rash, normal turgor Dx/Plan (1) NSTEMI (non-ST elevated myocardial infarction) Code(s): I21.4 - NON-ST ELEVATION (NSTEMI) MYOCARDIAL INFARCTION Status: Acute (2) Sinus bradycardia Code(s): R00.1 - BRADYCARDIA, UNSPECIFIED Status: Acute (3) Dyslipidemia Code(s): E78.5 - HYPERLIPIDEMIA, UNSPECIFIED Status: Chronic (4) Hypertension Code(s): I10 - ESSENTIAL (PRIMARY) HYPERTENSION Status: Chronic (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 Review of Systems - Review of Systems ENT: negative: Ear Pain, Ear Discharge, Nose Pain, Nose Discharge, Nose Congestion, Mouth Pain, Mouth Swelling, Throat Pain, Throat Swelling, Other Respiratory: negative: Cough, Dry, Shortness of Breath, Hemoptysis, SOB with Excertion, Pleuritic Pain, Sputum, Wheezing Cardiovascular: negative: chest pain, palpitations, orthopnea, paroxysmal nocturnal dyspnea, edema, light headedness, other Gastrointestinal: negative: Nausea, Vomiting, Abdominal Pain, Diarrhea, Constipation, Melena, Hematochezia, Other Genitourinary: negative: Dysuria, Frequency, Incontinence, Hematuria, Retention , Other Musculoskeletal: negative: Neck Pain, Shoulder Pain, Arm Pain, Back Pain, Hand Pain, Leg Pain, Foot Pain, Other Skin: negative: Rash, Lesions, Lonny, Bruising, Other - Medications/Allergies Allergies/Adverse Reactions: Allergies Allergy/AdvReac Type Severity Reaction Status Date / Time acetaminophen [From Tylenol] Allergy "my son Verified 10/08/17 03:33 of tylenol poisoning--dont want to take any" Medications: Current Medications Acetaminophen (Tylenol) 650 mg PO Q6H PRN PRN Reason: Headache/Fever Or Mild Pain Hydrocodone Bitart/Acetaminophen ([place] 5/325) 1 tab PO Q4H PRN PRN Reason: Moderate Pain (4-6) Hydrocodone Bitart/Acetaminophen ([place] 5/325) 2 tab PO Q4H PRN PRN Reason: Severe Pain (7-10) Al Hydroxide/Mg Hydroxide (Maalox) 30 ml PO Q4H PRN PRN Reason: Indigestion Albumin Human (Albumin 5%) 12.5 gm IVPB Q6H PRN PRN Reason: To Maintain SBP> 90 mmHG Stop: 10/11/17 08:15 Albumin Human (Albumin 5%) 25 gm IVPB Q6H PRN PRN Reason: To Maintain SBP > 90 mmHG Stop: 10/11/17 08:15 Albuterol/Ipratropium (Duoneb) 3 ml NEB [id number] PRN PRN Reason: SHORTNESS OF BREATH Artificial Tears (Tears Naturale) 0 drop EA EYE PRN PRN PRN Reason: Dry Eyes Aspirin (Aspirin) 325 mg PO DAILY COUNT INCLUDES THE [facility] Atorvastatin Calcium (Lipitor) 10 mg PO HS [place] Bisacodyl (Dulcolax) 10 mg PO Q12H PRN PRN Reason: Constipation Bisacodyl (Dulcolax) 10 mg MS Q12H PRN PRN Reason: Constipation Dextrose/Water (Dextrose 50%) 25 gm SLOW IVP PRN PRN PRN Reason: PER HYPOGLYCEMIC PROTOCOL Docusate Sodium (Colace) 100 mg PO BID [place]ZZ[place]TE Last Admin: 10/10/17 07:50 Dose: Not Given Famotidine (Pepcid) 20 mg SLOW IVP Q12HR [place] Fentanyl (Sublimaze) 25 mcg SLOW IVP Q2H PRN PRN Reason: Moderate Pain (4-6) Stop: 10/12/17 08:14 Fentanyl (Sublimaze) 50 mcg SLOW IVP Q2H PRN PRN Reason: Severe Pain (7-10) Stop: 10/12/17 08:14 Glucagon (Glucagon) 1 mg SC PRN PRN PRN Reason: PER HYPOGLYCEMIC PROTOCOL Guaifenesin (Robitussin Sf) 200 mg PO Q4H PRN PRN Reason: Cough Guaifenesin/Dextromethorphan (Robitussin Dm) 15 ml PO Q4H PRN PRN Reason: Cough Hydralazine HCl (Apresoline) 10 mg SLOW IVP Q6H PRN PRN Reason: To Maintain SBP< 140mmHG Heparin Sodium (Porcine) 30, (000 units/ Sodium Chloride) 1,003 mls @ 0 mls/hr FS WILLCALL [place]ZZETTE PRN Reason: As Directed Stop: 10/10/17 23:59 Hetastarch/Sodium Chloride (Hespan) 500 mls @ 0 mls/hr IVPB PRN PRN; As Directed PRN Reason: To Maintain SBP > 90mmHg Stop: 10/11/17 08:14 Norepinephrine Bitartrate (Levophed) 250 mls @ 0 mls/hr IVPB PRN PRN; Protocol ; Titrate PRN Reason: To maintain SBP > 90 mmHG Nicardipine HCl 25 mg/ Sodium (Chloride) 260 mls @ 0 mls/hr IVPB INF PRN; Protocol; Titrate PRN Reason: To Maintain SBP< 140mmHG Nitroglycerin/Dextrose (Nitroglycerin 50 Mg/250 Ml Bot) 250 mls @ 0 mls/hr IVPB PRN PRN; Protocol; Titrate PRN Reason: To Maintain SBP< 140mmHG Sodium Chloride (Normal Saline 0.9%) 1,000 mls @ 75 mls/hr IV .[id number] COUNT INCLUDES THE [facility] Insulin Human Regular 100 (units/ Sodium Chloride) 101 mls @ 0 mls/hr IVPB INF LIZZETTE; As Directed PRN Reason: Protocol Dextrose/Water (D5w) 1,000 mls @ 0 mls/hr IV INF PRN; As Directed PRN Reason: PRN HYPOGLYCEMIC PROTOCOL Insulin Human Regular (Humulin R) 0 units SC Q4H PRN; Protocol PRN Reason: POST OP SLIDING SCALE Ketorolac Tromethamine (Toradol) 15 mg IVP Q6HR COUNT INCLUDES THE [facility] Stop: 10/11/17 06:01 Lactulose (Lactulose) 20 gm PO DAILYPRN PRN PRN Reason: Constipation Loperamide HCl (Imodium) 2 mg PO PRN PRN PRN Reason: Diarrhea/Loose Stools Loratadine (Claritin) 10 mg PO DAILYPRN PRN PRN Reason: Sinus Symptoms Magnesium Hydroxide (Milk Of Magnesium) 30 ml PO DAILYPRN PRN PRN Reason: Constipation Mineral Oil/White Petrolatum (Eucerin Cream) 0 gm TOP BIDPRN PRN PRN Reason: Dry Skin Miscellaneous Information (Communication Order-Pharmacy) 1 each FS ASDIR COUNT INCLUDES THE [facility] Morphine Sulfate (Morphine) 2 mg SLOW IVP Q15H PRN PRN Reason: Severe Pain (7-10) Nitroglycerin (Nitrostat) 0.4 mg SL Q5MIN PRN PRN Reason: Chest Pain Ondansetron HCl (Zofran Odt) 4 mg PO Q6H PRN PRN Reason: Nausea/Vomiting Ondansetron HCl (Zofran) 4 mg IVP Q6H PRN PRN Reason: Nausea/Vomiting Phenol (Chloraseptic [place] 180 Ml Bot) 0 ml PO PRN PRN PRN Reason: Sore Throat Potassium Chloride (Kcl) 20 meq IVPB PRN PRN PRN Reason: K level </= 4.0 Sodium Chloride ([place] Nasal [place] 0.65%) 0 ml EA NARE QIDPRN PRN PRN Reason: Nasal Congestion Sodium Chloride (Flush - Normal Saline) 10 ml IVF Q12HR COUNT INCLUDES THE [facility] Last Admin: 10/10/17 07:50 Dose: Not Given Sodium Chloride (Flush - Normal Saline) 10 ml IVF PRN PRN PRN Reason: Saline Flush Temazepam (Restoril) 15 mg PO HSPRN PRN PRN Reason: Insomnia Tramadol HCl (Ultram) 50 mg PO Q6H PRN PRN Reason: Moderate Pain (4-6) Last Admin: 10/09/17 15:30 Dose: 50 mg
[2017-10-10 12:14] LABS: Base Excess (BEa) -2.5 mEq/L (0 (+/-) 2.5); CO2 Tension 42.1 mmHg (35.0-45.0); Hemoglobin (Hb) 12.8 g/dL (14.0-18.0); O2 Tension (PaO2) 107.2 mmHg (80.0-100.0); pH, Arterial 7.35 (7.35-7.45)
[2017-10-10 12:15] LABS: ALV-art Gradient 264.975 (0-20); Calcium, Ionized 1.3 mmol/L (1.12-1.30); Puncture Site ALINE
[2017-10-10 12:21] LABS: #Eosinphils 0.1 thou/uL (0.0-0.7); #Lymphocytes 1.1 thou/uL (1.20-3.40); #Monocytes 1.1 thou/uL (0.11-0.59); #Neutrophils 16.7 thou/uL (1.40-6.50); %Basophils 0.2 % (0.0-1.0); %Eosinophils 0.3 % (0.0-10.0); %Lymphocytes 5.6 % (21.0-51.0); %Monocytes 5.6 % (0.0-10.0); %Neutrophils 88.4 % (42.0-75.0); Hemoglobin 13.2 g/dL (14.0-18.0); Mean Corpuscular HGB CONC 33.4 g/dL (32.0-36.0); Mean Corpuscular Hemoglobin 30.2 pg (27.0-31.0); Mean Corpuscular Volume 90.2 fl (80.0-94.0); Mean Platelet Volume 7.3 fL (7.4-10.4); Platelet Count 112 thou/uL (130-400); RBC Distribution Width 11.8 % (11.5-14.5); Red Blood Cell (RBC) Count 4.39 mill/uL (4.70-6.10); White Blood Cell (WBC) Count 18.9 thou/uL (4.8-10.8)
[2017-10-10 12:24] LABS: INR-International Normal Ratio 1.4; PTT 29.9 SEC (22.9-36.1); Prothrombin Time 17.4 SEC (12.0-14.7)
[2017-10-10 12:40] LABS: Anion Gap 13 mmol/L (10-20); BUN (Urea Nitrogen) 14 mg/dL (8.4-25.7); Calc. Creatinine Clearance 101 mL/min (70-130); Calcium 8.3 mg/dL (7.8-10.44); Carbon Dioxide 18 mmol/L (23-31); Chloride 110 mmol/L (98-107); Estimated GFR-MDRD 87; Glucose 139 mg/dL (80-115); Potassium 4.2 mmol/L (3.5-5.1); Sodium 137 mmol/L (136-145)
[2017-10-10] MEDS: Sodium Chloride 0.9% 1,000 ML IV SCH ×2 (12:41→21:54)
[2017-10-10] MEDS: Ketorolac Tromethamine 30 MG/ML VIAL IVP SCH ×3 (12:47→23:59)
[2017-10-10] MEDS: Famotidine/PF 20 mg/2ml Vial SLOW IVP SCH ×2 (12:49→21:55)
[2017-10-10] MEDS ORDERED: Albumin 5% 250 ML ONE (12:55)
[2017-10-10] MEDS: Insulin Regular 300 UNITS/3 ML VIAL SC PRN ×2 (12:58→16:15)
--- NOTE | 2017-10-10 13:19 | OP ---
DATE OF PROCEDURE: 10/10/2017 PROCEDURE PERFORMED: Coronary artery bypass grafting x3 with left internal mammary artery to the dis you LAD and reverse greater saphenous vein graft from the aorta to the first diagonal into the PDA, r ight subclavian central line placement. PREOPERATIVE DIAGNOSES: Coronary artery disease, status post non-ST elevation myocardial infarction. POSTOPERATIVE DIAGNOSES: Coronary artery disease, status post non-ST elevation myocardial infarction . SURGEON: Dr. Lauro Vann AGRONOMY SUPERVISOR: Dr. Joni Santos ANESTHESIA: General endotracheal anesthesia. INDICATIONS: The patient is a 66-year-old man who presented with several days of a stuttering patter n of chest pain and was found to have positive troponins upon presentation. Cardiac catheterization showed complex high grade disease in the proximal LAD diagonal system as well as a subtotal stenosis of the right coronary that appeared to be associated with some intraluminal thrombus and sluggish alyssa ling in the vessel distally. He had mildly decreased LV function with inferior hypokinesis. He is n ow taken to the operating room for surgical revascularization. FINDINGS: The pump time 74 minutes, cross clamp time 43 minutes. Good quality ANNA and saphenous vei n. The LAD had a fairly large, but minimally obstructive plaque at about the junction of the middle and distal thirds. It was about a 1.5-2 mm vessel and the arteriotomy was made across that plaque in order to bridge it. There was hard plaque at the crux. The PDA proximally was a 1.5 mm good qualit y vessel. The diagonal proximally was about a 1.5-2 mm good quality vessel. The pericardium was leda sed. NARRATIVE REPORT: After informed consent was obtained, the patient was taken to the operating room a nd placed in supine position on the operating table. After the induction of general anesthesia, the patient's right upper chest is prepped and draped in sterile fashion with the patient in Trendelenbur g. A large bore needle was used to cannulate the right subclavian vein and by the Seldinger techniqu e, a triple-lumen central line kit was used to place a right subclavian central line. All 3 ports ea sily aspirated and flushed. The line was secured to the skin with suture. The patient's torso groin s and lower extremities were then prepped and draped in sterile fashion. Saphenous vein was harveste d endoscopically from the left thigh and prepared for use as a graft. The harvest sites were closed in layers of subcutaneous and subcuticular Vicryl. The median sternotomy was performed. The left IM A was mobilized as a pedicle from the level of the xiphoid to the level of the subclavian vein throug h an extrapleural exposure. The patient was heparinized. The mammary was ligated and divided distal ly. There is excellent flow through the mammary which was then instilled intraluminally with papaver ine solution, 1 small rent in the pleura anteriorly towards the apex was oversewn with fine Prolene s uture and closed over a Valsalva maneuver. The mammary bed was inspected for hemostasis. The ANNA re tractor was replaced with a sternal retractor. The pericardium was opened and marsupialized. The ao rta was palpated and was soft. A double concentric pursestring of 2 Ethibond was placed in the ascen ding aorta within the pericardial reflection, a single pursestring is placed in the right atrial appe ndage. Aortic and venous cannulae were inserted and secured by their pursestrings. Cardiopulmonary bypass was instituted and the patient was allowed to systemically cool. The heart was examined. The vessels to be bypassed were identified. Hilar reflections of left pleura were mobilized and a longi tudinal slit was made in the pericardium anterior to the left phrenic nerve through which the mammary pedicle could be passed without developing the plane between the aorta and the pulmonary artery and aortic cross clamp was applied and cardioplegia was administered through an aortic root needle. When arrest had been achieved, attention was turned to the distal right coronary system. The proximal PD A was exposed and opened with a [place] blade and [place] scissors and reverse greater saphenous vein was anastomosed there end-to-side with running Prolene suture. The anastomosis was tested by flushi ng cold cardioplegia through the graft. Attention was then turned to the first diagonal. It was fol lowed proximally where it was a larger vessel. It was opened and grafted in a similar fashion. The LAD was then exposed. There was a large plaque that was quite prominent at about the junction of the middle and distal thirds on either side the vessel appeared to be good quality. It was opened dista lly and the arteriotomy was extended slightly distally, but then proximally to a bridge across that p laque that was mildly obstructive. The mammary was generously spatulated and then anastomosed to glenn t arteriotomy end-to-side with running 7-0 Prolene suture. The pedicle was tacked to the epicardium. The aortic cross clamps were placed with partial occluding clamp, aortotomies were made in the asce nding aorta with a scalpel punch incorporating the root needle site into one of the aortotomies. The PDA graft was brought along the right side of the heart and anastomosed in the more proximal aortoto my. The diagonal graft was anastomosed to the more distal aortotomy. The partial occluding clamp wa s removed and the vein grafts were deaired. The bulldogs were removed from them. The anastomoses we re inspected for hemostasis. The posterior pericardial drain was brought out through a separate inci harvey and secured with suture. Right atrial and right ventricular temporary epicardial pacing wires w ere placed. The patient was then easily from cardiopulmonary bypass. The aortic and venou s cannulae were removed and their pursestring secured. Protamine was administered. When hemostasis was adequate an anterior mediastinal drain was placed. The pericardium was easily closed over the ru nning Vicryl. The sternum was reapproximated with #7 stainless steel wires. The fascia was closed o toño the wires with heavy Vicryl. Subcutaneous tissue was irrigated and reapproximated and the skin w as closed with Vicryl subcuticular stitch. The wounds were dressed and the patient taken to the inte nsive Care Unit in stable condition.
--- NOTE | 2017-10-10 13:40 | RAD ---
PORTABLE CHEST: Date: 10/10/17 HISTORY: Postop sternotomy follow-up. FINDINGS/IMPRESSION: Postop sternotomy change. ET tube is adequately positioned. The central line appears in adequate posi tion. Lungs show some streaky atelectatic change. No evidence of significant effusion. Lung bird ar e otherwise well aerated. No evidence of vascular congestion. POS: [facility]
[2017-10-10 15:38] LABS: Actual Bicarbonate (HCO3a) 19.6 mEq/L (22-26); Base Excess (BEa) -5.2 mEq/L (0 (+/-) 2.5); CO2 Tension 35.4 mmHg (35.0-45.0); Hematocrit-ABG 33.8 % (42.0-52.0); Hemoglobin (Hb) 11.9 g/dL (14.0-18.0); O2 Tension (PaO2) 93.4 mmHg (80.0-100.0); pH, Arterial 7.36 (7.35-7.45)
[2017-10-10 15:39] LABS: Calcium, Ionized 1.2 mmol/L (1.12-1.30); Puncture Site ALINE
[2017-10-10] MEDS: Fentanyl 100 MCG/2 ML VIAL SLOW IVP PRN ×2 (16:44→21:27)
[2017-10-10] MEDS ORDERED: Propofol 200 MG/20 ML VIAL ONE (18:11)
[2017-10-10] MEDS ORDERED: CEFAZOLIN 1 GM VIAL ONE (18:11)
[2017-10-10] MEDS ORDERED: PHENYLEPHRINE-NS 100 MCG/ML 10 ML SYRINGE ONE (18:11)
[2017-10-10] MEDS ORDERED: Sterile Water 10 ML VIAL ONE (18:11)
[2017-10-10] MEDS ORDERED: ePHEDrine/0.9% NaCl/PF SYRINGE 50 mg/10 ml ONE (18:11)
[2017-10-10 18:42] LABS: Potassium 4.2 mmol/L (3.5-5.1)
[2017-10-10] MEDS: HYDROcodone/Acetaminophen 5/325 mg Tablet PO PRN ×2 (19:44→23:58)
[2017-10-10] MEDS: Atorvastatin Calcium 10 MG TAB PO SCH (21:24)
[2017-10-10] MEDS ORDERED: Famotidine 40 MG/4 ML VIAL SLOW IVP SCH (21:30)
[2017-10-11 04:15] LABS: #Lymphocytes 1.1 thou/uL (1.20-3.40); #Monocytes 1.6 thou/uL (0.11-0.59); #Neutrophils 9.7 thou/uL (1.40-6.50); %Basophils 0.1 % (0.0-1.0); %Eosinophils 0.1 % (0.0-10.0); %Lymphocytes 8.9 % (21.0-51.0); %Neutrophils 77.8 % (42.0-75.0); Hemoglobin 10.6 g/dL (14.0-18.0); Mean Corpuscular HGB CONC 34.7 g/dL (32.0-36.0); Mean Corpuscular Hemoglobin 30.8 pg (27.0-31.0); Mean Corpuscular Volume 88.8 fl (80.0-94.0); Mean Platelet Volume 6.7 fL (7.4-10.4); Platelet Count 121 thou/uL (130-400); RBC Distribution Width 11.9 % (11.5-14.5); Red Blood Cell (RBC) Count 3.45 mill/uL (4.70-6.10); White Blood Cell (WBC) Count 12.5 thou/uL (4.8-10.8)
[2017-10-11 04:37] LABS: Anion Gap 8 mmol/L (10-20); BUN (Urea Nitrogen) 21 mg/dL (8.4-25.7); Calc. Creatinine Clearance 88 mL/min (70-130); Calcium 7.9 mg/dL (7.8-10.44); Carbon Dioxide 24 mmol/L (23-31); Chloride 110 mmol/L (98-107); Estimated GFR-MDRD 74; Glucose 120 mg/dL (80-115); Potassium 4.2 mmol/L (3.5-5.1); Sodium 138 mmol/L (136-145)
[2017-10-11] MEDS: HYDROcodone/Acetaminophen 5/325 mg Tablet PO PRN ×4 (05:07→20:09)
[2017-10-11] MEDS: Ketorolac Tromethamine 30 MG/ML VIAL IVP SCH (05:09)
[2017-10-11] MEDS ORDERED: Guaifenesin DM 100-10/5 ML UDCUP PO PRN (08:38)
[2017-10-11] MEDS ORDERED: Milk Of Magnesia 30 ML UDCUP PO PRN (08:38)
[2017-10-11] MEDS ORDERED: Mag-Al 1200 mg/1200 mg/30 ML UDCUP PO PRN (08:38)
[2017-10-11] MEDS ORDERED: Zolpidem Tartrate 5 MG TAB PO PRN (08:38)
[2017-10-11] MEDS ORDERED: Nitroglycerin 0.4 MG TAB (25 Tab Bottle) SL PRN (08:38)
[2017-10-11] MEDS ORDERED: diphenhydrAMINE 25 MG CAP PO PRN (08:38)
[2017-10-11] MEDS ORDERED: Bisacodyl 10 MG SUPP PR PRN (08:38)
[2017-10-11] MEDS ORDERED: Artificial Tears 18 DROP/0.9 ML EA EYE PRN (08:38)
[2017-10-11] MEDS ORDERED: Mineral Oil ENEMA PR PRN (08:38)
[2017-10-11] MEDS ORDERED: Bisacodyl 5 MG TAB PO PRN (08:38)
[2017-10-11] MEDS ORDERED: Acetaminophen 325 MG TAB PO PRN (08:38)
[2017-10-11] MEDS ORDERED: Furosemide 40 MG/4 ML VIAL SLOW IVP SCH (09:00)
[2017-10-11] MEDS ORDERED: Famotidine 40 MG/4 ML VIAL SLOW IVP SCH (09:00)
[2017-10-11] MEDS: Aspirin 325 mg Enteric Coated Tablet PO SCH (09:08)
--- NOTE | 2017-10-11 09:37 | RAD ---
UPRIGHT PORTABLE CHEST 1 VIEW: HISTORY: A 66-year-old male with a history of postop open heart. COMPARISON: 10/10/17. FINDINGS: Chest tubes remain in place. The NG tube and endotracheal tubes have been removed. Right subclavian catheter is in place. There are some patchy bilateral perihilar linear and interstitial increased m arkings extending into the bases consistent with some postop change with small left pleural effusion. No evidence for pneumothorax or other significant new process. IMPRESSION: Postoperative changes with increased markings in the perihilar and infrahilar regions. No other sign ificant acute process. Continue short-term followup. POS: [facility]
--- NOTE | 2017-10-11 11:45 | EKG ---
Test Reason : Blood Pressure : / mmHG Vent. Rate : 055 BPM Atrial Rate : 055 BPM P-R Int : 186 ms QRS Dur : 084 ms QT Int : 418 ms P-R-T Axes : 052 -46 -45 degrees QTc Int : 399 ms Sinus bradycardia Left axis deviation Inferior infarct , age undetermined Abnormal ECG Confirmed by GAGAN MENDEZ, DAE Srivastava ([id number]), sports editor DULCE MARIA KIRK ([id number]) on 10/11/2017 11:44:29 AM Referred By: Confirmed By:DAE FARAH MD
--- NOTE | 2017-10-11 20:08 | PDOC.PN ---
- Subjective Encounter Start Date: 10/11/17 Encounter Start Time: 12:50 Patient seen and examined. No new complaints. No overnight events. No CP/SOB - Objective MAR Reviewed: Yes Vital Signs & Weight: Vital Signs (12 hours) Temp Pulse Pulse Pulse Resp BP BP 10/11/17 19:39 98.9 F 75 22 H 10/11/17 19:00 98.9 F 10/11/17 16:00 98.7 F 10/11/17 12:27 91 72 123/74 104/68 10/11/17 11:00 98.0 F 10/11/17 09:55 73 68 105/68 107/61 Pulse Ox Pulse Ox Pulse Ox 10/11/17 19:39 96 10/11/17 19:00 10/11/17 16:00 96 10/11/17 12:27 95 96 10/11/17 11:00 10/11/17 09:55 98 95 Weight Admit Weight 196 lb 3.382 oz Weight 188 lb 7.924 oz Most Recent Monitor Data Heart Rate from ECG 75 NIBP 104/64 NIBP BP-Mean 70 Respiration from ECG 27 SpO2 97 I&O: 10/10/17 10/11/17 10/12/17 06:59 06:59 06:59 Intake Total 1695 2929 1130 Output Total 1800 1460 700 Balance -105 1469 430 Result Diagrams: 10/11/17 04:00 10/12/17 04:35 Additional Labs: Accuchecks 10/11/17 10/11/17 10/11/17 05:19 04:02 02:27 POC Glucose 122 H 127 H 137 H 10/11/17 10/11/17 10/10/17 01:11 00:09 23:14 POC Glucose 140 H 127 H 138 H 10/10/17 10/10/17 22:00 21:20 POC Glucose 155 H 172 H EKG Reviewed by me: Yes (Tele SR) Phys Exam - Physical Examination Constitutional: NAD Respiratory: no wheezing, no rhonchi Cardiovascular: RRR, no rub Gastrointestinal: soft, non-tender, positive bowel sounds Musculoskeletal: no edema Neurological: moves all 4 limbs Dx/Plan - Plan DVT proph w/SCDs IMPRESSION: 1. NSTEMI 2. CAD s/p CABG 3. CKD 2 4. HTN / HLD 5. Other issues per previous notes PLAN: * Cont Post op care * Await Tele bed * Cont cardiac rehab * Cont ASA / Statins * Not on ACEI/BB due to BP on lower side Review of Systems - Review of Systems Respiratory: negative: Cough, Dry, Shortness of Breath, Hemoptysis, SOB with Excertion, Pleuritic Pain, Sputum, Wheezing Cardiovascular: negative: chest pain, palpitations, orthopnea, paroxysmal nocturnal dyspnea, edema, light headedness - Medications/Allergies Allergies/Adverse Reactions: Allergies Allergy/AdvReac Type Severity Reaction Status Date / Time acetaminophen [From Tylenol] Allergy "my son Verified 10/08/17 03:33 of tylenol poisoning--dont want to take any" Medications: Current Medications Acetaminophen (Tylenol) 650 mg PO Q6H PRN PRN Reason: Headache/Fever or Pain Hydrocodone Bitart/Acetaminophen ([place] 5/325) 1 tab PO Q4H PRN PRN Reason: Moderate Pain (4-6) Last Admin: 10/10/17 15:38 Dose: 1 tab Hydrocodone Bitart/Acetaminophen ([place] 5/325) 2 tab PO Q4H PRN PRN Reason: Severe Pain (7-10) Last Admin: 10/11/17 13:13 Dose: 2 tab Al Hydroxide/Mg Hydroxide (Maalox) 30 ml PO Q4H PRN PRN Reason: Indigestion Albuterol/Ipratropium (Duoneb) 3 ml NEB Q6H PRN PRN Reason: Respiratory Distress Artificial Tears (Tears Naturale) 0 drop EA EYE PRN PRN PRN Reason: Dry Eyes Aspirin (Ecotrin) 325 mg PO DAILY [facility] Last Admin: 10/11/17 09:08 Dose: 325 mg Atorvastatin Calcium (Lipitor) 10 mg PO HS [facility] Last Admin: 10/10/17 21:24 Dose: 10 mg Bisacodyl (Dulcolax) 10 mg PO Q12H PRN PRN Reason: Constipation Bisacodyl (Dulcolax) 10 mg MS Q12H PRN PRN Reason: Constipation Diphenhydramine HCl (Benadryl) 25 mg PO Q6H PRN PRN Reason: Itching & Insomnia or Dung Andres Fentanyl (Sublimaze) 25 mcg SLOW IVP Q2H PRN PRN Reason: Moderate Pain (4-6) Stop: 10/12/17 08:14 Last Admin: 10/10/17 15:09 Dose: 25 mcg Fentanyl (Sublimaze) 50 mcg SLOW IVP Q2H PRN PRN Reason: Severe Pain (7-10) Stop: 10/12/17 08:14 Last Admin: 10/10/17 21:27 Dose: 50 mcg Guaifenesin/Dextromethorphan (Robitussin Dm) 15 ml PO Q4H PRN PRN Reason: Cough Magnesium Hydroxide (Milk Of Magnesium) 30 ml PO Q12H PRN PRN Reason: Constipation Mineral Oil (Fleet Mineral Oil) 133 ml MS DAILYPRN PRN PRN Reason: Constipation Nitroglycerin (Nitrostat) 0.4 mg SL Q5MIN PRN PRN Reason: Chest Pain Sodium Chloride (Flush - Normal Saline) 10 ml IVF PRN PRN PRN Reason: Saline Flush Zolpidem Tartrate (Ambien) 5 mg PO HSPRN PRN PRN Reason: Insomnia
[2017-10-11] MEDS: Atorvastatin Calcium 10 MG TAB PO SCH (20:09)
[2017-10-12] MEDS: HYDROcodone/Acetaminophen 5/325 mg Tablet PO PRN ×4 (03:05→21:36)
[2017-10-12 05:19] LABS: Anion Gap 7 mmol/L (10-20); BUN (Urea Nitrogen) 20 mg/dL (8.4-25.7); Calc. Creatinine Clearance 101 mL/min (70-130); Calcium 8.1 mg/dL (7.8-10.44); Carbon Dioxide 26 mmol/L (23-31); Chloride 104 mmol/L (98-107); Estimated GFR-MDRD 88; Glucose 115 mg/dL (80-115); Potassium 3.7 mmol/L (3.5-5.1); Sodium 133 mmol/L (136-145)
[2017-10-12] MEDS: Aspirin 325 mg Enteric Coated Tablet PO SCH (08:18)
[2017-10-12] MEDS: Carvedilol 3.125 MG TAB PO SCH (16:43)
[2017-10-12] MEDS: Atorvastatin Calcium 10 MG TAB PO SCH (21:36)
--- NOTE | 2017-10-12 22:12 | PDOC.PN ---
- Subjective Encounter Start Date: 10/12/17 Encounter Start Time: 10:30 Patient seen and examined. No new complaints. No overnight events - Objective MAR Reviewed: Yes Vital Signs & Weight: Vital Signs (12 hours) Temp Pulse Pulse Pulse Resp BP BP 10/12/17 16:00 97.4 F L 71 18 10/12/17 11:57 87 74 127/66 113/72 10/12/17 11:26 98.5 F 77 16 10/12/17 10:23 98.2 F 73 16 BP BP Pulse Ox Pulse Ox Pulse Ox 10/12/17 16:00 104/67 91 L 10/12/17 11:57 93 L 93 L 10/12/17 11:26 110/72 93 L 10/12/17 10:23 119/66 93 L Weight Admit Weight 196 lb 3.382 oz Weight 188 lb 14.4 oz Most Recent Monitor Data Heart Rate from ECG 74 NIBP 105/66 NIBP BP-Mean 72 Respiration from ECG 26 SpO2 92 I&O: 10/11/17 10/12/17 10/13/17 06:59 06:59 06:59 Intake Total 2929 1430 660 Output Total 1460 1000 200 Balance 1469 430 460 Result Diagrams: 10/11/17 04:00 10/12/17 04:35 Additional Labs: Accuchecks 10/10/17 08:23 POC Glucose 100 EKG Reviewed by me: Yes (Tele SR) Phys Exam - Physical Examination Constitutional: NAD Respiratory: no wheezing, no rhonchi Cardiovascular: RRR, no rub Gastrointestinal: soft, non-tender, positive bowel sounds Musculoskeletal: no edema Neurological: moves all 4 limbs Dx/Plan - Plan DVT proph w/SCDs IMPRESSION: 1. NSTEMI 2. CAD s/p CABG 3. CKD 2 4. HTN / HLD / Ischemic cardiomyopathy EF 35% 5. Other issues per previous notes PLAN: * Cont cardiac rehab * Cont ASA / Statins / Betablockers * Not on ACEI/ARB or Aldactone due to BP on lower side * Cont Post op care Review of Systems - Review of Systems Respiratory: negative: Cough, Dry, Shortness of Breath, Hemoptysis, SOB with Excertion, Pleuritic Pain, Sputum, Wheezing Cardiovascular: negative: chest pain, palpitations, orthopnea, paroxysmal nocturnal dyspnea, edema, light headedness - Medications/Allergies Allergies/Adverse Reactions: Allergies Allergy/AdvReac Type Severity Reaction Status Date / Time acetaminophen [From Tylenol] Allergy "my son Verified 10/08/17 03:33 of tylenol poisoning--dont want to take any" Medications: Current Medications Acetaminophen (Tylenol) 650 mg PO Q6H PRN PRN Reason: Headache/Fever or Pain Hydrocodone Bitart/Acetaminophen ([place] 5/325) 1 tab PO Q4H PRN PRN Reason: Moderate Pain (4-6) Last Admin: 10/10/17 15:38 Dose: 1 tab Hydrocodone Bitart/Acetaminophen ([place] 5/325) 2 tab PO Q4H PRN PRN Reason: Severe Pain (7-10) Last Admin: 10/12/17 21:36 Dose: 2 tab Al Hydroxide/Mg Hydroxide (Maalox) 30 ml PO Q4H PRN PRN Reason: Indigestion Albuterol/Ipratropium (Duoneb) 3 ml NEB Q6H PRN PRN Reason: Respiratory Distress Artificial Tears (Tears Naturale) 0 drop EA EYE PRN PRN PRN Reason: Dry Eyes Aspirin (Ecotrin) 325 mg PO DAILY [facility] Last Admin: 10/12/17 08:18 Dose: 325 mg Atorvastatin Calcium (Lipitor) 10 mg PO [facility] Last Admin: 10/12/17 21:36 Dose: 10 mg Bisacodyl (Dulcolax) 10 mg PO Q12H PRN PRN Reason: Constipation Bisacodyl (Dulcolax) 10 mg LA Q12H PRN PRN Reason: Constipation [facility] ([facility]) [facility] Last Admin: 10/12/17 16:43 Dose: 1.5625 mg Diphenhydramine HCl (Benadryl) 25 mg PO Q6H PRN PRN Reason: Itching & Insomnia or Dung Andres Guaifenesin/Dextromethorphan (Robitussin Dm) 15 ml PO Q4H PRN PRN Reason: Cough Magnesium Hydroxide (Milk Of Magnesium) 30 ml PO Q12H PRN PRN Reason: Constipation Mineral Oil (Fleet Mineral Oil) 133 ml [place] DAILYPRN PRN PRN Reason: Constipation Nitroglycerin (Nitrostat) 0.4 mg SL Q5MIN PRN PRN Reason: Chest Pain Sodium Chloride (Flush - Normal Saline) 10 ml IVF PRN PRN PRN Reason: Saline Flush Last Admin: 10/12/17 21:37 Dose: 10 ml Zolpidem Tartrate (Ambien) 5 mg PO HSPRN PRN PRN Reason: Insomnia
[2017-10-13 04:53] LABS: Anion Gap 9 mmol/L (10-20); BUN (Urea Nitrogen) 15 mg/dL (8.4-25.7); Calc. Creatinine Clearance 109 mL/min (70-130); Calcium 8.1 mg/dL (7.8-10.44); Carbon Dioxide 25 mmol/L (23-31); Chloride 107 mmol/L (98-107); Estimated GFR-MDRD Greater than 90; Glucose 107 mg/dL (80-115); Magnesium 1.9 mg/dL (1.6-2.6); Sodium 137 mmol/L (136-145)
[2017-10-13] MEDS: Aspirin 325 mg Enteric Coated Tablet PO SCH (08:19)
[2017-10-13] MEDS: Carvedilol 3.125 MG TAB PO SCH ×2 (08:19→16:48)
--- NOTE | 2017-10-13 15:10 | PDOC.PN ---
- Subjective Encounter Start Date: 10/13/17 Encounter Start Time: 15:09 Subjective: feels very well. s/p CABGX3. no CP/SOB/DELEON/F/chills - Objective MAR Reviewed: Yes Vital Signs & Weight: Vital Signs (12 hours) Temp Pulse Pulse Pulse Resp BP BP 10/13/17 13:57 71 78 134/80 123/67 10/13/17 12:26 98.9 F 70 16 10/13/17 10:28 71 70 137/74 111/66 10/13/17 08:09 98.6 F 73 20 10/13/17 04:00 98.4 F 73 20 BP Pulse Ox Pulse Ox Pulse Ox 10/13/17 13:57 94 L 93 L 10/13/17 12:26 104/70 92 L 10/13/17 10:28 93 L 98 10/13/17 08:09 112/74 92 L 10/13/17 04:00 109/69 97 Weight Admit Weight 196 lb 3.382 oz Weight 189 lb 11.2 oz Most Recent Monitor Data Heart Rate from ECG 74 NIBP 105/66 NIBP BP-Mean 72 Respiration from ECG 26 SpO2 92 I&O: 10/12/17 10/13/17 10/14/17 06:59 06:59 06:59 Intake Total 1430 1080 Output Total 1000 950 Balance 430 130 Result Diagrams: 10/11/17 04:00 10/13/17 04:04 Additional Labs: Laboratory Tests 10/08/17 10/10/17 10/11/17 03:25 12:08 04:00 WBC 8.4 18.9 H 12.5 H Phys Exam - Physical Examination Constitutional: NAD HEENT: PERRLA, moist MMs, sclera anicteric, oral pharynx no lesions Neck: no nodes, no JVD, supple, full ROM Respiratory: no wheezing, no rales, no rhonchi, clear to auscultation bilateral Cardiovascular: RRR, no significant murmur, no rub, gallop Gastrointestinal: soft, non-tender, no distention, positive bowel sounds Neurological: non-focal, normal sensation, moves all 4 limbs surgical scars w/o oozing/erythema/warmth Psychiatric: normal affect, A&O x 3 Skin: no rash Dx/Plan (1) NSTEMI (non-ST elevated myocardial infarction) Code(s): I21.4 - NON-ST ELEVATION (NSTEMI) MYOCARDIAL INFARCTION Status: Acute (2) Dyslipidemia Code(s): E78.5 - HYPERLIPIDEMIA, UNSPECIFIED Status: Chronic (3) Hypertension Code(s): I10 - ESSENTIAL (PRIMARY) HYPERTENSION Status: Chronic (4) Ischemic cardiomyopathy Code(s): I25.5 - ISCHEMIC CARDIOMYOPATHY Status: Chronic - Plan plan discussed w/ family, DVT proph w/SCDs Cont ASA,statin,BB.add JADE-I prior to DC -: wean off O2 .DC home if not using suppplemental O2 -: cardiology & CTVS f/u as an OP also. -: cardiac rehab -: hemodynamically stable. * . Review of Systems - Review of Systems Constitutional: negative: fever, chills, sweats, weakness, malaise, other ENT: negative: Ear Pain, Ear Discharge, Nose Pain, Nose Discharge, Nose Congestion, Mouth Pain, Mouth Swelling, Throat Pain, Throat Swelling, Other Respiratory: negative: Cough, Dry, Shortness of Breath, Hemoptysis, SOB with Excertion, Pleuritic Pain, Sputum, Wheezing Cardiovascular: negative: chest pain, palpitations, orthopnea, paroxysmal nocturnal dyspnea, edema, light headedness, other Gastrointestinal: negative: Nausea, Vomiting, Abdominal Pain, Diarrhea, Constipation, Melena, Hematochezia, Other Genitourinary: negative: Dysuria, Frequency, Incontinence, Hematuria, Retention , Other Musculoskeletal: negative: Neck Pain, Shoulder Pain, Arm Pain, Back Pain, Hand Pain, Leg Pain, Foot Pain, Other Neurological: negative: Weakness, Numbness, Incoordination, Change in Speech, Confusion, Seizures, Other - Medications/Allergies Allergies/Adverse Reactions: Allergies Allergy/AdvReac Type Severity Reaction Status Date / Time acetaminophen [From Tylenol] Allergy "my son Verified 10/08/17 03:33 of tylenol poisoning--dont want to take any" Medications: Current Medications Acetaminophen (Tylenol) 650 mg PO Q6H PRN PRN Reason: Headache/Fever or Pain Hydrocodone Bitart/Acetaminophen (Gotham 5/325) 1 tab PO Q4H PRN PRN Reason: Moderate Pain (4-6) Last Admin: 10/10/17 15:38 Dose: 1 tab Hydrocodone Bitart/Acetaminophen (Gotham 5/325) 2 tab PO Q4H PRN PRN Reason: Severe Pain (7-10) Last Admin: 10/12/17 21:36 Dose: 2 tab Al Hydroxide/Mg Hydroxide (Maalox) 30 ml PO Q4H PRN PRN Reason: Indigestion Albuterol/Ipratropium (Duoneb) 3 ml NEB Q6H PRN PRN Reason: Respiratory Distress Artificial Tears (Tears Naturale) 0 drop EA EYE PRN PRN PRN Reason: Dry Eyes Aspirin (Ecotrin) 325 mg PO DAILY [facility] Last Admin: 10/13/17 08:19 Dose: 325 mg Atorvastatin Calcium (Lipitor) 10 mg PO HS [facility] Last Admin: 10/12/17 21:36 Dose: 10 mg Bisacodyl (Dulcolax) 10 mg PO Q12H PRN PRN Reason: Constipation Bisacodyl (Dulcolax) 10 mg IL Q12H PRN PRN Reason: Constipation Carvedilol (Coreg) 1.5625 mg PO BID[facility] Last Admin: 10/13/17 08:19 Dose: 1.5625 mg Diphenhydramine HCl (Benadryl) 25 mg PO Q6H PRN PRN Reason: Itching & Insomnia or Dung Andres Guaifenesin/Dextromethorphan (Robitussin Dm) 15 ml PO Q4H PRN PRN Reason: Cough Magnesium Hydroxide (Milk Of Magnesium) 30 ml PO Q12H PRN PRN Reason: Constipation Mineral Oil (Fleet Mineral Oil) 133 ml [place] DAILYPRN PRN PRN Reason: Constipation Nitroglycerin (Nitrostat) 0.4 mg SL Q5MIN PRN PRN Reason: Chest Pain Sodium Chloride (Flush - Normal Saline) 10 ml IVF PRN PRN PRN Reason: Saline Flush Last Admin: 10/13/17 08:23 Dose: 10 ml Zolpidem Tartrate (Ambien) 5 mg PO HSPRN PRN PRN Reason: Insomnia
[2017-10-13 15:30] VITALS: BP 112/69; TEMP 98.7
[2017-10-13] MEDS ORDERED: Lisinopril 2.5 MG TAB PO SCH (15:30)
--- NOTE | 2017-10-13 17:59 | DIS ---
DATE OF ADMISSION: 10/08/2017 DATE OF DISCHARGE: 10/13/2017 CONDITION AT THE TIME OF DISCHARGE: Stable and improved. DISCHARGE DIAGNOSES: 1. Non-ST elevation myocardial infarction, status post cardiac catheterization and coronary artery b ypass graft x3 vessels. 2. Ischemic cardiomyopathy with 3 CABG, ejection fraction of 45% to 50%. 4. Hypertension. 5. Dyslipidemia. DISCHARGE MEDICATIONS: Lisinopril 2.5 mg daily, Coreg 1.5625 mg p.o. b.i.d., Lipitor 10 mg daily, as pirin 325 mg daily. The patient is instructed to stop his lisinopril/hydrochlorothiazide. PRIMARY CARE PHYSICIAN: Dr. Gm Aguilar. INHOUSE CONSULTATIONS: 1. Cardiology, Dr. Beebe. 2. Cardiothoracic Surgery, Dr. Vann. PROCEDURES DONE IN THE HOSPITAL: Include: 1. Transthoracic echocardiogram, which shows ejection fraction of 45% to 50% with diastolic dysfunct ion, mild to moderate aortic regurgitation. 2. Cardiac catheterization showed 2-vessel coronary artery disease in LAD and RCA with moderate left ventricular dysfunction. 3. Coronary artery bypass graft x3 vessels, first left internal mammary artery to the distal LAD. 4. Reverse greater saphenous vein graft from the aorta to the first diagonal into the PDA. 5. Right subclavian central line placement. HISTORY OF PRESENTING ILLNESS: Mr. Mckeon is a very pleasant 66-year-old male with past m edical history of hypertension and dyslipidemia, who presented to the emergency room with complaints of chest pain. His labs were significant for troponin of 1.32 and CK-MB of 12.9 and EKG without show ing any ST or T-wave changes. He was admitted with a diagnosis of non-ST elevation MS and started on subcutaneous Lovenox 1 mg per mg/kg b.i.d. dosing as well as aspirin. Statins were continued and Ca rdiology was consulted. Please see admission history and physical for further details. HOSPITAL COURSE: Cardiology saw the patient and an echocardiogram was done. Cardiology, Dr. Flavio quezada thought that the EKG showed sinus bradycardia with probable inferior infarction and echo showed mil d cardiomyopathy with EF of 45% to 50%, he was a candidate for cardiac catheterization. Catheterizat ion was done on 10/08/2017 and showed a 2-vessel disease and Cardiothoracic Surgery was consulted. Evelyn Vann saw the patient on 10/09/2017 and agreed that he would need coronary artery bypass gra fting. This was done successfully on 10/10/2017. The patient was monitored multiple days post-proce dure and has been doing very well. This morning, he was cleared by Cardiothoracic Surgery and Cardiology for discharge. He was weaned o ff of the oxygen and did very well with oxygen saturation of 95% on room air. He was seen and examined prior to discharge. Please see hospitalist progress note from the date of d ischarge for further detail including [id number] interaction. Discharge plan was discussed with th e patient and , who were verbalized understanding. Prescriptions were provided and all questions were answered. He will follow up with Cardiology as well cardiothoracic surgeon and primary care ph ysician. Total time spent in the discharge of this patient 32 minutes.
[2017-10-14] MEDS ORDERED: Lisinopril 2.5 MG TAB PO SCH (09:00)
--- NOTE | 2017-10-14 20:15 | EKG ---
Test Reason : POST CABG Blood Pressure : / mmHG Vent. Rate : 074 BPM Atrial Rate : 074 BPM P-R Int : 176 ms QRS Dur : 088 ms QT Int : 414 ms P-R-T Axes : 054 -39 -06 degrees QTc Int : 459 ms Normal sinus rhythm Left axis deviation Inferior infarct (cited on or before 07-OCT-2017) Abnormal ECG When compared with ECG of 07-OCT-2017 22:54, (Unconfirmed) QT has lengthened Confirmed by DIVINA LUDWIG (2) on 10/14/2017 8:15:24 PM Referred By: KLEVER Confirmed By:DIVINA LUDWIG
--- NOTE | 2017-10-15 09:23 | PQF ---
NADIYA HANKINS RICHA MD [id number] [facility] [id number] CLINICAL DOCUMENTATION CLARIFICATION FORM: POST DISCHARGE Addendum to original discharge summary date: ____ Late entry note date: __ DATE: 10/15/2017 ATTN: DR. MENCHACA Please exercise your independent, professional judgment in responding to the clarification form. Clinical indicators are provided on the bottom of this form for your review Please check appropriate box(s): AMI TYPE: [ ] Acute Coronary Syndrome (ACS) without Acute TN meaning Unstable Angina [ ] NSTEMI [ ] AMI Type II [ ] STEMI (please also specify site and arterysee below) If STEMI, SITE:[ ] Anterior [ ] Apical [ ] Lateral [ ] Inferior [ ] Posterior [ ] Q Wave [ ] Septal [ ] Unable to Determine SPECIFIC ARTERY (Based on site) [ ] Left Main Coronary[ ] Diagonal [ ] Left Anterior Descending[ ] Oblique Marginal [ ] Right Coronary Artery[ ] Unable to Determine [ ] Left Circumflex ONSET OF INFARCTION: [ ] Onset Less than 4 weeks of admission [ ] Onset Greater than 4 weeks of admission [ ] Unable to determine DUE TO (if applicable): [ ] Stent occlusion [ ] In-Stent stenosis [ ] Occlusion of coronary bypass graft [ ] Complication of PCI [ ] Underlying CAD [ ] Other [ ] Other diagnosis [ ] Unable to determine In addition, please specify: Present on Admission (POA): [ ] Yes [ ] No [ ] Unable to determine CLINICAL INDICATORS - SIGNS / SYMPTOMS / LABS: LABS: TROPONIN 1.32 H&P: [id number] ELEVATION MYOCARDIAL INFARCTION 10/08 CARDIO CONSULT: [id number] MYOCARDIAL INFARCTION, PROBABLY INFERIORLY 10/13 PN: NSTEMI 10/12 & 10/11 PN - INFERIOR STEMI 10/09 PN: INFERIOR NSTEMI DS: NON-ST ELEVATION MYOCARDIAL INFARCTION RISKS: Hypertension CAD ISCHEMIC CARDIOMYOPATHY TREATMENTS: Heart cath / percutaneous intervention Continuous cardiac monitoring Cardiac consult CABG (This form is maintained as a part of the permanent medical record) 2014 [employer]. All Rights Reserved Svetlana Duarte CCS, STRAIGHTENING ROLL OPERATOR-H [email or web address] [phone] MTDD
[2017-10-21 18:02] LABS: CO2 Tension 33.4 mmHg (35.0-45.0); pH, Arterial 7.43 (7.35-7.45)
[2017-10-21 18:03] LABS: Actual Bicarbonate (HCO3a) 21.6 mEq/L (22-26); Calcium, Ionized 1.2 mmol/L (1.12-1.30); Hematocrit-ABG 36.8 % (42.0-52.0); Hemoglobin (Hb) 12.6 g/dL (14.0-18.0); O2 Tension (PaO2) 311.6 mmHg (80.0-100.0)
[2017-10-21 18:04] LABS: Analyzer IN Cardio OR; Puncture Site ALINE
[2017-10-21 18:05] LABS: Actual Bicarbonate (HCO3a) 21.3 mEq/L (22-26); Analyzer IN Cardio OR; Base Excess (BEa) -3.2 mEq/L (0 (+/-) 2.5); CO2 Tension 36.6 mmHg (35.0-45.0); Calcium, Ionized 1.2 mmol/L (1.12-1.30); Hematocrit-ABG 35.3 % (42.0-52.0); Hemoglobin (Hb) 12.1 g/dL (14.0-18.0); O2 Tension (PaO2) 366.8 mmHg (80.0-100.0); Puncture Site ALINE; pH, Arterial 7.38 (7.35-7.45)
[2017-10-21 18:06] LABS: Analyzer IN Cardio OR
[2017-10-21 18:06] LABS: Actual Bicarbonate (HCO3a) 24.3 mEq/L (22-26); Analyzer IN Cardio OR; Base Excess (BEa) -1.9 mEq/L (0 (+/-) 2.5); Hemoglobin (Hb) 8.9 g/dL (14.0-18.0); O2 Tension (PaO2) 403.2 mmHg (80.0-100.0); Puncture Site ALINE; pH, Arterial 7.32 (7.35-7.45)
[2017-10-21 18:07] LABS: Actual Bicarbonate (HCO3a) 22.6 mEq/L (22-26); Base Excess (BEa) -3.4 mEq/L (0 (+/-) 2.5); CO2 Tension 45.2 mmHg (35.0-45.0); O2 Tension (PaO2) 317.9 mmHg (80.0-100.0); pH, Arterial 7.32 (7.35-7.45)
[2017-10-21 18:07] LABS: Actual Bicarbonate (HCO3v) 25 mEq/L (22-26); Base Excess -1.3 mEq/L (0 (+/- 2.5)); Calcium, Ionized 1.03 mmol/L (1.16-1.32); Chloride (ABG LAB) 103 mmol/L (98-106); Hematocrit-VBG 25.6 % (37-51); Hemoglobin (Hb) 8.9 g/dL (12.6-17.4); Potassium - ABG Lab 4.5 mmol/L (3.70-5.30); Sodium 136.7 mmol/L (133-146)
[2017-10-21 18:08] LABS: Analyzer IN Cardio OR; Calcium, Ionized 1.1 mmol/L (1.12-1.30); Hematocrit-ABG 26.9 % (42.0-52.0); Hemoglobin (Hb) 9.4 g/dL (14.0-18.0); Puncture Site ALINE
[2017-10-21 18:09] LABS: Actual Bicarbonate (HCO3a) 20.4 mEq/L (22-26); Base Excess (BEa) -4.4 mEq/L (0 (+/-) 2.5); CO2 Tension 36.6 mmHg (35.0-45.0); Hematocrit-ABG 33.1 % (42.0-52.0); Hemoglobin (Hb) 11.9 g/dL (14.0-18.0); O2 Tension (PaO2) 252.9 mmHg (80.0-100.0); pH, Arterial 7.37 (7.35-7.45)
[2017-10-21 18:10] LABS: Analyzer IN Cardio OR; Calcium, Ionized 1.3 mmol/L (1.12-1.30); Puncture Site ALINE
== END 2017-10-13 17:46 | disposition home or self-care (01) | DRG 234 ==
LOC: ERS 22:47 → 2SE 10-08 01:28 → CCU 10-09 08:08 → 2NO 10-12 10:37
PROVIDERS: ADMIT Internal Medicine; ATTEND Internal Medicine
PROC: 4A023N7 Measurement of Cardiac Sampling and Pressure, Left Heart, Percutaneous Approach (ICD-10-PCS; 2017-10-09)
PROC: B2111ZZ Fluoroscopy of Multiple Coronary Arteries using Low Osmolar Contrast (ICD-10-PCS; 2017-10-09)
PROC: B2151ZZ Fluoroscopy of Left Heart using Low Osmolar Contrast (ICD-10-PCS; 2017-10-09)
PROC: 02100Z9 Bypass Coronary Artery, One Artery from Left Internal Mammary, Open Approach (ICD-10-PCS; principal; 2017-10-10)
PROC: 021109W Bypass Coronary Artery, Two Arteries from Aorta with Autologous Venous Tissue, Open Approach (ICD-10-PCS; 2017-10-10)
PROC: 06BQ4ZZ Excision of Left Saphenous Vein, Percutaneous Endoscopic Approach (ICD-10-PCS; 2017-10-10)
PROC: 5A1221Z Performance of Cardiac Output, Continuous (ICD-10-PCS; 2017-10-10)
PROC: 06HY33Z Insertion of Infusion Device into Lower Vein, Percutaneous Approach (ICD-10-PCS; 2017-10-10)
DX: I21.4 Non-ST elevation (NSTEMI) myocardial infarction (principal); E78.00 Pure hypercholesterolemia, unspecified; E78.5 Hyperlipidemia, unspecified; I25.10 Atherosclerotic heart disease of native coronary artery without angina pectoris; I25.5 Ischemic cardiomyopathy; Z87.891 Personal history of nicotine dependence; N18.2 Chronic kidney disease, stage 2 (mild); R00.1 Bradycardia, unspecified; I12.9 Hypertensive chronic kidney disease with stage 1 through stage 4 chronic kidney disease, or unspecified chronic kidney disease; I51.89 Other ill-defined heart diseases
CPT/HCPCS: 36415; 36416; 71045; 80048; 80053; 80061; 82805; 83735; 84484; 85014; 85018; 85025; 85049; 85347; 85610; 85730; 86850; 86900; 86901; 93005; 93010; 93306; 93458; 93798; 94002; 94150; 99152; J2270; A4216; C1769; J0690; J1644; J1815; J1885; J1940; J2001; J2250; J2704; J3010; J7050; P9045